=== PATIENT | female | born 1965 | race Two or more races ===

== ENCOUNTER 2019-02-09 07:58 | Outpatient (AMBR) | payer MEDICAID, SELFPAY ==
--- NOTE | 2019-02-09 08:12 | PT.OIERPT ---
PT OP Initial Eval Patient Information Visit Reasons: POST OP LEFT SHOULDER Medical Diagnosis: M75.122 Z47.89 Treatment Dx #1: L shoulder dec ROM Treatment Dx #2: s/p L capsular reconstruction, RC repair Start of Care: 02/09/19 Date of Onset: 01/10/19 Initial Assessment Subjective Pt is 54 yr old female kinyarwanda speaking s/p L capsular reconstruction, RC repair about 4 weeks ago. She is wearing abduction sling during the day and not at night. Pain level in the shoulder is 9/10 and she needs help with dressing, grooming and bathing ADL's. PMH: DM, high cholesterol Pt goal: to reach up with the shoulder without pain Objective L shoulder PROM: Flexion: 100 deg Abduction: 90 deg Erot: 35 deg AROM: NT Strength: NT Assessment Pt presentation consistent with referring Dx with ROM, strength and functional deficits of L shoulder with low tissue irritability. Pt has good rehab potential. Eval followed by HEP of PROM with materials. 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 Ind with HEP 2. Improved AROM of R shoulder to full 3. Pt will reach OH into tall cabinets with <=3/10 pain 4. Independent with ADL's with functional strength Treatment Plan 1. Manual therapy 2. Therex 3. Modalities as indicated, moist heat, ice, estim Frequency and Duration 2x a week for 8 weeks Certification Dates: 02/09/19 to 05/12/19 Office Procedures PT Procedures PT Date of Service: 02/09/19 OP PT Eval Mod Complex 30 minutes: Yes
== END 2019-02-10 23:59 | disposition home or self-care (01) ==
PROVIDERS: PCP Physician Assistant; Referring Provider Physician Assistant; Visit Provider Orthopaedic Surgery
DX: M75.122 Complete rotator cuff tear or rupture of left shoulder, not specified as traumatic (principal)
CPT/HCPCS: 97162

== ENCOUNTER 2019-03-12 08:00 | Outpatient (AMBR) | payer MEDICAID, SELFPAY ==
--- NOTE | 2019-02-13 15:52 | PT.ODAYNRPT ---
PT Outpatient Daily Note Date of Service: February 13, 2019 OP Daily Note Visit Reasons: post op left shoulder Outpatient Physical Therapy Treatment Date: 02/13/19 Subjective: Same as time of evaluation Objective: See F/S for therex Pulse 102 measured when she sat up at the end of Rx Assessment: Pt had good understanding of therex today to improve AAROM of L shoulder. After doing inclined supine therex she sat up and felt dizzy. After resting in sitting position for a couple minutes she was able to stand and walk out of the clinic. Plan: Continue per POC as tolerated Length of Time (minutes) of Treatment: 30 Minutes Office Procedures PT Procedures PT Date of Service: 02/13/19 Therapeutic Exercise 30 minutes: Yes
--- NOTE | 2019-02-15 10:01 | PTNOTE_ITS ---
PT Outpatient Daily Note Date of Service: February 15, 2019 OP Daily Note Visit Reasons: post op left shoulder Outpatient Physical Therapy Treatment Date: 02/15/19 Subjective: Feeling much better than last visit Objective: See F/S for therex Assessment: Slowly improving AAROM into FF, abduction and Erot with cues to rem ember HEP. Plan: Improve ROM Length of Time (minutes) of Treatment: 30 Minutes Office Procedures PT Procedures PT Date of Service: 02/13/19 Therapeutic Exercise 30 minutes: Yes PT Procedures PT Date of Service: 02/15/19 Therapeutic Exercise 30 minutes: Yes
--- NOTE | 2019-02-20 12:10 | PT.ODAYNRPT ---
PT Outpatient Daily Note Date of Service: February 20, 2019 OP Daily Note Visit Reasons: post op left shoulder Outpatient Physical Therapy Treatment Date: 02/20/19 Subjective: Improved shoulder ROM Objective: See F/S for therex MT: PPM into FF, abduction and Erot x10' to end-range to improve PROM Assessment: Slowly improving PROM and AAROM into FF, abduction and Erot. Plan: Improve ROM Length of Time (minutes) of Treatment: 30 Minutes Office Procedures PT Procedures PT Date of Service: 02/13/19 Therapeutic Exercise 30 minutes: Yes PT Procedures PT Date of Service: 02/15/19 Therapeutic Exercise 30 minutes: Yes PT Procedures PT Date of Service: 02/20/19 Therapeutic Exercise 15 minutes: Yes Manual Laboratory Animal Care Veterinarian 15 minutes: Yes
--- NOTE | 2019-02-22 12:05 | PTNOTE_ITS ---
PT Outpatient Daily Note Date of Service: February 22, 2019 OP Daily Note Visit Reasons: post op left shoulder Subjective: Improved shoulder ROM Objective: See F/S for therex MT: PPM into FF, abduction and Erot x10' to end-range to improve PROM Assessment: Slowly improving PROM and AAROM into FF, abduction and Erot. Plan: Improve ROM Office Procedures PT Procedures PT Date of Service: 02/22/19 Therapeutic Exercise 15 minutes: Yes Manual Warehouse Material Handler 15 minutes: Yes PT Procedures PT Date of Service: 02/13/19 Therapeutic Exercise 30 minutes: Yes PT Procedures PT Date of Service: 02/15/19 Therapeutic Exercise 30 minutes: Yes PT Procedures PT Date of Service: 02/20/19 Therapeutic Exercise 15 minutes: Yes Manual Warehouse Material Handler 15 minutes: Yes
--- NOTE | 2019-02-26 08:47 | PT.ODAYNRPT ---
PT Outpatient Daily Note Date of Service: February 26, 2019 OP Daily Note Visit Reasons: post op left shoulder Outpatient Physical Therapy Treatment Date: 02/26/19 Subjective: Improved shoulder ROM Objective: See F/S for therex MT: PPM into FF, abduction and Erot x10' to end-range to improve PROM PROM: Erot: 80 deg, FF: 145 deg, Abduction: 145 deg Assessment: Good improvement with PROM and AAROM into FF, abduction and Erot. Plan: Improve ROM, transition to ArOM Length of Time (minutes) of Treatment: 30 Minutes Office Procedures PT Procedures PT Date of Service: 02/22/19 Therapeutic Exercise 15 minutes: Yes Manual Medical Examiner 15 minutes: Yes PT Procedures PT Date of Service: 02/26/19 Therapeutic Exercise 15 minutes: Yes Manual Medical Examiner 15 minutes: Yes PT Procedures PT Date of Service: 02/13/19 Therapeutic Exercise 30 minutes: Yes PT Procedures PT Date of Service: 02/15/19 Therapeutic Exercise 30 minutes: Yes PT Procedures PT Date of Service: 02/20/19 Therapeutic Exercise 15 minutes: Yes Manual Medical Examiner 15 minutes: Yes
--- NOTE | 2019-02-28 13:41 | PT.ODAYNRPT ---
PT Outpatient Daily Note Date of Service: February 28, 2019 OP Daily Note Visit Reasons: post op left shoulder Outpatient Physical Therapy Treatment Date: 02/28/19 Subjective: Improved shoulder ROM Objective: See F/S for therex MT: PPM into FF, abduction and Erot x10' to end-range to improve PROM PROM: Erot: 80 deg, FF: 145 deg, Abduction: 145 deg Assessment: Good improvement with PROM and AAROM into FF, abduction and Erot. Plan: Improve ROM, transition to ArOM Length of Time (minutes) of Treatment: 30 Minutes Office Procedures PT Procedures PT Date of Service: 02/22/19 Therapeutic Exercise 15 minutes: Yes Manual Personnel Records Clerk 15 minutes: Yes PT Procedures PT Date of Service: 02/26/19 Therapeutic Exercise 15 minutes: Yes Manual Personnel Records Clerk 15 minutes: Yes PT Procedures PT Date of Service: 02/13/19 Therapeutic Exercise 30 minutes: Yes PT Procedures PT Date of Service: 02/15/19 Therapeutic Exercise 30 minutes: Yes PT Procedures PT Date of Service: 02/20/19 Therapeutic Exercise 15 minutes: Yes Manual Personnel Records Clerk 15 minutes: Yes PT Procedures PT Date of Service: 02/28/19 Therapeutic Exercise 15 minutes: Yes Manual Personnel Records Clerk 15 minutes: Yes
--- NOTE | 2019-03-05 10:21 | PTNOTE_ITS ---
PT Outpatient Daily Note Date of Service: March 05, 2019 OP Daily Note Visit Reasons: post op left shoulder Outpatient Physical Therapy Treatment Date: 03/05/19 Subjective: Improved shoulder ROM Objective: See F/S for therex MT: PPM into FF, abduction and Erot x5' to end-range to improve PROM Assessment: Good improvement with AROM into FF, abduction and Erot, limited into Erot at about 45 deg. Plan: Improve ROM, continue transitioning to ArOM Length of Time (minutes) of Treatment: 30 Minutes Office Procedures PT Procedures PT Date of Service: 02/22/19 Therapeutic Exercise 15 minutes: Yes Manual Epic Willow Specialist 15 minutes: Yes PT Procedures PT Date of Service: 02/26/19 Therapeutic Exercise 15 minutes: Yes Manual Epic Willow Specialist 15 minutes: Yes PT Procedures PT Date of Service: 03/05/19 Therapeutic Exercise 30 minutes: Yes PT Procedures PT Date of Service: 02/13/19 Therapeutic Exercise 30 minutes: Yes PT Procedures PT Date of Service: 02/15/19 Therapeutic Exercise 30 minutes: Yes PT Procedures PT Date of Service: 02/20/19 Therapeutic Exercise 15 minutes: Yes Manual Epic Willow Specialist 15 minutes: Yes PT Procedures PT Date of Service: 02/28/19 Therapeutic Exercise 15 minutes: Yes Manual Epic Willow Specialist 15 minutes: Yes
--- NOTE | 2019-03-07 10:08 | PTNOTE_ITS ---
PT Outpatient Daily Note Date of Service: March 07, 2019 OP Daily Note Visit Reasons: post op left shoulder Outpatient Physical Therapy Treatment Date: 03/07/19 Subjective: Improved shoulder ROM Objective: See F/S for therex Assessment: Good improvement with AROM into FF, abduction and Erot. Plan: Improve ROM, continue transitioning to ArOM Length of Time (minutes) of Treatment: 30 Minutes Office Procedures PT Procedures PT Date of Service: 02/22/19 Therapeutic Exercise 15 minutes: Yes Manual Supervisor Machining 15 minutes: Yes PT Procedures PT Date of Service: 02/26/19 Therapeutic Exercise 15 minutes: Yes Manual Supervisor Machining 15 minutes: Yes PT Procedures PT Date of Service: 03/05/19 Therapeutic Exercise 30 minutes: Yes PT Procedures PT Date of Service: 02/13/19 Therapeutic Exercise 30 minutes: Yes PT Procedures PT Date of Service: 02/15/19 Therapeutic Exercise 30 minutes: Yes PT Procedures PT Date of Service: 02/20/19 Therapeutic Exercise 15 minutes: Yes Manual Supervisor Machining 15 minutes: Yes PT Procedures PT Date of Service: 02/28/19 Therapeutic Exercise 15 minutes: Yes Manual Supervisor Machining 15 minutes: Yes PT Procedures PT Date of Service: 03/07/19 Therapeutic Exercise 30 minutes: Yes
--- NOTE | 2019-03-12 09:48 | PT.ODAYNRPT ---
PT Outpatient Daily Note Date of Service: March 12, 2019 OP Daily Note Visit Reasons: post op left shoulder Outpatient Physical Therapy Treatment Date: 03/12/19 Subjective: My shoulder hurts more today, could it be from the cold weather? Objective: See F/S for therex Assessment: Good improvement so far with AROM into FF, abduction and Erot but slight increased pain today limited AROM tolerance compared to last visit. Plan: Improve ROM, continue transitioning to ArOM Length of Time (minutes) of Treatment: 30 Minutes Office Procedures PT Procedures PT Date of Service: 02/22/19 Therapeutic Exercise 15 minutes: Yes Manual Extrusion Die Corrector 15 minutes: Yes PT Procedures PT Date of Service: 02/26/19 Therapeutic Exercise 15 minutes: Yes Manual Extrusion Die Corrector 15 minutes: Yes PT Procedures PT Date of Service: 03/05/19 Therapeutic Exercise 30 minutes: Yes PT Procedures PT Date of Service: 03/12/19 Therapeutic Exercise 30 minutes: Yes PT Procedures PT Date of Service: 02/13/19 Therapeutic Exercise 30 minutes: Yes PT Procedures PT Date of Service: 02/15/19 Therapeutic Exercise 30 minutes: Yes PT Procedures PT Date of Service: 02/20/19 Therapeutic Exercise 15 minutes: Yes Manual Extrusion Die Corrector 15 minutes: Yes PT Procedures PT Date of Service: 02/28/19 Therapeutic Exercise 15 minutes: Yes Manual Extrusion Die Corrector 15 minutes: Yes PT Procedures PT Date of Service: 03/07/19 Therapeutic Exercise 30 minutes: Yes
== END 2019-03-12 23:59 | disposition home or self-care (01) ==
PROVIDERS: PCP Physician Assistant; Referring Provider Physician Assistant; Visit Provider Orthopaedic Surgery
DX: M75.122 Complete rotator cuff tear or rupture of left shoulder, not specified as traumatic (principal)
CPT/HCPCS: 97110; 97140

== ENCOUNTER 2019-04-09 08:00 | Outpatient (AMBR) | payer MEDICAID, SELFPAY ==
--- NOTE | 2019-03-14 15:01 | PT.ODAYNRPT ---
PT Outpatient Daily Note Date of Service: March 14, 2019 OP Daily Note Visit Reasons: post op left shoulder Outpatient Physical Therapy Treatment Date: 03/14/19 Subjective: Moving the arm and reaching better but with mild/mod pain Objective: See F/S for therex Assessment: Good improvement with AROM in all planes. Full PROM into FF and Erot. Plan: Continue per POC Length of Time (minutes) of Treatment: 30 Minutes Office Procedures PT Procedures PT Date of Service: 03/14/19 Therapeutic Exercise 30 minutes: Yes
--- NOTE | 2019-03-19 08:36 | PT.ODAYNRPT ---
PT Outpatient Daily Note Date of Service: March 19, 2019 OP Daily Note Visit Reasons: post op left shoulder Outpatient Physical Therapy Treatment Date: 03/19/19 Subjective: I can move my arm better but I don't have much strength. Objective: See F/S for therex Assessment: Good improvement with AROM in all planes. Full PROM into FF and Erot and good progress with goals thus far. Plan: Continue per POC Length of Time (minutes) of Treatment: 30 Minutes Office Procedures PT Procedures PT Date of Service: 03/14/19 Therapeutic Exercise 30 minutes: Yes PT Procedures PT Date of Service: 03/19/19 Therapeutic Exercise 30 minutes: Yes
--- NOTE | 2019-03-21 10:19 | PT.ODAYNRPT ---
PT Outpatient Daily Note Date of Service: March 21, 2019 OP Daily Note Visit Reasons: post op left shoulder Outpatient Physical Therapy Treatment Date: 03/21/19 Subjective: I can move my arm better and it's not hurting much Objective: See F/S for therex Assessment: Good improvement with AROM in all planes. Full PROM into FF and Erot and good progress with goals thus far. Plan: Continue per POC Length of Time (minutes) of Treatment: 30 Minutes Office Procedures PT Procedures PT Date of Service: 03/14/19 Therapeutic Exercise 30 minutes: Yes PT Procedures PT Date of Service: 03/19/19 Therapeutic Exercise 30 minutes: Yes PT Procedures PT Date of Service: 03/21/19 Therapeutic Exercise 30 minutes: Yes
--- NOTE | 2019-03-26 19:33 | PT.ODAYNRPT ---
PT Outpatient Daily Note Date of Service: March 26, 2019 OP Daily Note Visit Reasons: post op left shoulder Outpatient Physical Therapy Treatment Date: 03/26/19 Subjective: I can move my arm better and it's not hurting much Objective: See F/S for therex Assessment: Good improvement with AROM in all planes. Full PROM into FF and Erot and good progress with goals thus far. Transitioning to light strengthening with therabands with low tissue irritability. Plan: Continue per POC Length of Time (minutes) of Treatment: 30 Minutes Office Procedures PT Procedures PT Date of Service: 03/14/19 Therapeutic Exercise 30 minutes: Yes PT Procedures PT Date of Service: 03/19/19 Therapeutic Exercise 30 minutes: Yes PT Procedures PT Date of Service: 03/21/19 Therapeutic Exercise 30 minutes: Yes PT Procedures PT Date of Service: 03/26/19 Therapeutic Exercise 30 minutes: Yes
--- NOTE | 2019-04-02 08:52 | PT.ODAYNRPT ---
PT Outpatient Daily Note Date of Service: April 02, 2019 OP Daily Note Visit Reasons: post op left shoulder Outpatient Physical Therapy Treatment Date: 04/02/19 Subjective: I can move my arm better and it's not hurting much Objective: See F/S for therex Assessment: Good improvement with AROM in all planes. Full PROM into FF and Erot and good progress with goals thus far. Transitioning to light strengthening with therabands with some difficulty into Erot. She tends to use compensatory trunk lean with Erot and abduction. Plan: Continue per POC Length of Time (minutes) of Treatment: 30 Minutes Office Procedures PT Procedures PT Date of Service: 03/14/19 Therapeutic Exercise 30 minutes: Yes PT Procedures PT Date of Service: 03/19/19 Therapeutic Exercise 30 minutes: Yes PT Procedures PT Date of Service: 03/21/19 Therapeutic Exercise 30 minutes: Yes PT Procedures PT Date of Service: 03/26/19 Therapeutic Exercise 30 minutes: Yes PT Procedures PT Date of Service: 04/02/19 Therapeutic Exercise 30 minutes: Yes
--- NOTE | 2019-04-04 08:36 | PT.ODAYNRPT ---
PT Outpatient Daily Note Date of Service: April 04, 2019 OP Daily Note Visit Reasons: post op left shoulder Outpatient Physical Therapy Treatment Date: 04/04/19 Subjective: I can move my arm better and it's not hurting much Objective: See F/S for therex Assessment: Good improvement with AROM in all planes. Full PROM into FF and Erot and good progress with goals thus far. Transitioning to light strengthening with therabands with some difficulty into Erot. She tends to use compensatory trunk lean with Erot and abduction. Plan: Reassess Length of Time (minutes) of Treatment: 30 Minutes Office Procedures PT Procedures PT Date of Service: 03/14/19 Therapeutic Exercise 30 minutes: Yes PT Procedures PT Date of Service: 03/19/19 Therapeutic Exercise 30 minutes: Yes PT Procedures PT Date of Service: 03/21/19 Therapeutic Exercise 30 minutes: Yes PT Procedures PT Date of Service: 03/26/19 Therapeutic Exercise 30 minutes: Yes PT Procedures PT Date of Service: 04/02/19 Therapeutic Exercise 30 minutes: Yes PT Procedures PT Date of Service: 04/04/19 Therapeutic Exercise 30 minutes: Yes
--- NOTE | 2019-04-09 11:45 | PT.ODS1RPT ---
PT OP Progress/Discharge Note Date of Service: April 09, 2019 Progress Note/DC Note Progress Note/Discharge Note: DC Note Patient Information Visit Reasons: post op left shoulder Service Continue Service or Discharge: Discharge Discharge Date: 04/09/19 Status Subjective: Pt reports much better ROM and that the shoulder is doing well. Prepared to D/C from therapy. Objective: L shoulder AROM: Strength MMT: FF: 152 deg 4/5 Abd: 143 deg 4-/5 Erot: 71 deg 3/5 Assessment: Pt has attended / Rx visits with very good progress with therapy goals. She has met the goal of being independent with HEP and reaching OH into tall cabinets with <=3/10 pain. She is not having pain into FF but Erot she has discomfort. Pt is independent with ADL's with functional strength. Pt was given updated HEP of light resistance therex with theraband to continue at home. Plan: D/C with HEP. Office Procedures PT Procedures PT Date of Service: 03/14/19 Therapeutic Exercise 30 minutes: Yes PT Procedures PT Date of Service: 03/19/19 Therapeutic Exercise 30 minutes: Yes PT Procedures PT Date of Service: 03/21/19 Therapeutic Exercise 30 minutes: Yes PT Procedures PT Date of Service: 03/26/19 Therapeutic Exercise 30 minutes: Yes PT Procedures PT Date of Service: 04/02/19 Therapeutic Exercise 30 minutes: Yes PT Procedures PT Date of Service: 04/04/19 Therapeutic Exercise 30 minutes: Yes PT Procedures PT Date of Service: 04/09/19 Therapeutic Exercise 30 minutes: Yes
== END 2019-04-12 23:59 | disposition home or self-care (01) ==
PROVIDERS: PCP Physician Assistant; Referring Provider Physician Assistant; Visit Provider Orthopaedic Surgery
DX: Z47.89 Encounter for other orthopedic aftercare (principal); M75.122 Complete rotator cuff tear or rupture of left shoulder, not specified as traumatic
CPT/HCPCS: 97110

== ENCOUNTER 2021-06-04 09:54 | Outpatient (AMBR) | payer MEDICAID, SELFPAY ==
--- NOTE | 2021-05-25 14:34 | PT.OIERPT ---
PT OP Initial Eval Patient Information Visit Reasons: right knee pain Medical Diagnosis: M25.561 Treatment Dx #1: Right Knee Pain Treatment Dx #2: Right Knee Mobility Deficits Start of Care: 05/25/21 Date of Onset: 1 year ago Initial Assessment Subjective Pt is a 56 y/o female s/p right knee arthroscopic surgery by Dr Marks ~ 1 year ago due to medial meniscus tear. Pt still has a lot of knee pain (6/10). Pt has limitation with work duties, chores, sitting, standing, walking, self care, recreational activities, and performing ADLs. Pt did not receive any formal physical therapy after the knee surgery. Objective Right Knee AROM: 0 deg to 95 deg with pain Right Knee MMTs Quads: 3+/5 Hs: 3-/5 Right Hip MMTs Glute Med: 3/5 Glute Max: 3/5 SLS: NT Special Test (+) ant knee compression test Assessment Pt demonstrate right knee pain with mobility deficits s/p knee surgery leading to decline function. 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 1) Increase right knee AROM WNL in 6 wks to be able to perform squatting activities 2) Increase right knee MMTs grossly to 4/5 in 6 wks to be able to perform work duties 3) Increase SLS to 10 sec in 6 wks to be able to perform self care activities 4) Increase right hip MMTs grossly to 3+/5 in 6 wks to be able to perform recreational activities 5) Indep with HEP Treatment Plan 1) Manual Therapy 2) Therapeutic Activities 3) Therapeutic Exercises 4) Modalities (ice, heat) 5) Balance Training Frequency and Duration 2 x wk for 6 wks Certification Dates: 05/25/21 to 08/23/21 Office Procedures PT Treatments PT Date of Service: 05/25/21 OP PT Eval Mod Complex 30 minutes: Yes
--- NOTE | 2021-05-28 11:37 | PT.ODAYNRPT ---
PT Outpatient Daily Note Date of Service: 05/28/21 OP Daily Note Visit Reasons: right knee pain Outpatient Physical Therapy Treatment Date: 05/28/21 Subjective: Pt's knee hurts the same and continues to have limitation with bending. Objective: Please see flow chart for list of ther ex performed Assessment: tolerate exercises with minimal pain; post heat decrease pain Plan: Continue with PT Length of Time (minutes) of Treatment: 30 Minutes Office Procedures PT Treatments PT Date of Service: 05/25/21 OP PT Eval Mod Complex 30 minutes: Yes PT Treatments PT Date of Service: 05/28/21 Therapeutic Exercise 30 minutes: Yes
--- NOTE | 2021-06-01 13:35 | PT.ODAYNRPT ---
PT Outpatient Daily Note Date of Service: 06/01/2021 OP Daily Note Visit Reasons: right knee pain Outpatient Physical Therapy Treatment Date: 06/01/21 Subjective: pt came in with knee pain. Objective: see flow sheet. Assessment: pt was having knee pain during treatment. she completed the exercises at her pace. advised her to stop if the pain increases. STM to her qauds in which noted muscle tension. she did not c/o pain but she was aware of the muscle tension. advised her to massage at home as well. ice pack post ther ex. Plan: continue POC per PT. Length of Time (minutes) of Treatment: 30 Minutes Office Procedures PT Treatments PT Date of Service: 06/01/21 Therapeutic Exercise 30 minutes: Yes PT Treatments PT Date of Service: 05/25/21 OP PT Eval Mod Complex 30 minutes: Yes PT Treatments PT Date of Service: 05/28/21 Therapeutic Exercise 30 minutes: Yes
--- NOTE | 2021-06-04 11:47 | PT.ODAYNRPT ---
PT Outpatient Daily Note Date of Service: 06/04/2021 OP Daily Note Visit Reasons: right knee pain Outpatient Physical Therapy Treatment Date: 06/04/21 Subjective: pt states her knee has slight pain upon visit. Objective: see flow sheet. Assessment: pt did c/o pain and pointed to the midline of the knee joint towards the lateral aspect of the knee. added new exercises in which she has good knee flexion ROM. she does fatigue due to knee discomfort. she did ambulate with antalgic gait pattern. ice pack post ther ex. Plan: continue POC per PT. Length of Time (minutes) of Treatment: 30 Minutes Office Procedures PT Treatments PT Date of Service: 06/01/21 Therapeutic Exercise 30 minutes: Yes PT Treatments PT Date of Service: 05/25/21 OP PT Eval Mod Complex 30 minutes: Yes PT Treatments PT Date of Service: 05/28/21 Therapeutic Exercise 30 minutes: Yes PT Treatments PT Date of Service: 06/04/21 Therapeutic Exercise 30 minutes: Yes
--- NOTE | 2021-06-09 14:04 | PT.ODS1RPT ---
PT OP Progress/Discharge Note Date of Service: 06/09/21 Progress Note/DC Note Progress Note/Discharge Note: DC Note Patient Information Visit Reasons: right knee pain Service Discharge Date: 06/09/21 Status Assessment: Pt has been seen for 4 visits (eval + 3 visits). Pt was last treated on 06/04/21. Pt no showed 06/09/21 appt and was contact regarding follow up appts. Pt stated that she will like to be d/c and will follow up with provider. Pt d/c per Pt's request, thank you for your referrals Office Procedures PT Treatments PT Date of Service: 06/01/21 Therapeutic Exercise 30 minutes: Yes PT Treatments PT Date of Service: 05/25/21 OP PT Eval Mod Complex 30 minutes: Yes PT Treatments PT Date of Service: 05/28/21 Therapeutic Exercise 30 minutes: Yes PT Treatments PT Date of Service: 06/04/21 Therapeutic Exercise 30 minutes: Yes
== END 2021-06-12 23:59 | disposition home or self-care (01) ==
PROVIDERS: PCP Physician Assistant; Referring Provider Physician Assistant; Visit Provider Physician Assistant
DX: M25.561 Pain in right knee (principal); R26.2 Difficulty in walking, not elsewhere classified
CPT/HCPCS: 97110; 97162

== ENCOUNTER → 2024-05-03 | Outpatient (CLI) | payer MEDICAID, SELFPAY ==
--- NOTE | 2024-05-03 13:14 | XR_ITS ---
Examination: Knee bilateral, 6 views Technique: Knee AP, lateral, oblique each knee total 6 views Date and time of exam: May 03, 2024 1414 hours INDICATIONS: Patient fell 2 weeks ago with injury to both knees, bilateral knee pain. FINDINGS: Bilateral moderate to advanced tricompartment osteoarthritis, most severe medial joint spaces No acute fracture or dislocation involving either knee Meniscus calcification IMPRESSION: No acute fracture dislocation involving either knee
--- NOTE | 2024-05-03 13:14 | XR_ITS ---
Examination: Shoulder,right, 3 views Technique: Shoulder AP internal rotation, AP external rotation, Y view shoulder, 3 views Exam date and time :May 03, 2024 at 1418 hours INDICATIONS: Patient fell 2 weeks ago with injury to the right shoulder, right shoulder pain. FINDINGS: No shoulder fracture or dislocation Advanced osteoarthritis glenohumeral joint No calcific tendinitis IMPRESSION: Advanced osteoarthritis glenohumeral joint
== END | disposition home or self-care (01) ==
LOC: CDIM 13:02
PROVIDERS: PCP Physician Assistant; Referring Provider Physician Assistant; Visit Provider Physician Assistant
DX: M19.011 Primary osteoarthritis, right shoulder (principal); S49.91XA Unspecified injury of right shoulder and upper arm, initial encounter; S89.92XA Unspecified injury of left lower leg, initial encounter; S89.91XA Unspecified injury of right lower leg, initial encounter; W19.XXXA Unspecified fall, initial encounter
CPT/HCPCS: 73030; 73562

== ENCOUNTER → 2024-12-18 | Outpatient (CLI) | payer OTHER, SELFPAY ==
--- NOTE | 2024-12-18 | XR_ITS ---
Examination: Knee, right , 3 views Technique: Knee AP, lateral, oblique 3 views Date and time of exam: December 18, 2024 1207 hours INDICATIONS: Patient fell 6 days ago with injury to the knee, knee pain. FINDINGS: Significant osteoarthritis medial joint space. Moderate osteopenia. Moderate knee effusion. No acute fracture IMPRESSION: No acute fracture
--- NOTE | 2024-12-18 | XR_ITS ---
EXAMINATION: Ankle, right 3 views . Technique: Ankle AP, oblique, lateral 3 views Date and time of exam: December 18, 2024 1207 hours INDICATIONS: Patient fell 6 days ago with injury to the ankle, ankle pain. FINDINGS: Moderate osteopenia. Soft tissue vascular calcification. No fracture or dislocation. IMPRESSION: No fracture or dislocation.
[2024-12-18 12:54] LABS: Basophils # (Auto) 0.0 Thou/mm3 (0.0-0.2); Basophils % (Auto) 1 % (0-2.5); Eosinophils # (Auto) 0.1 Thou/mm3 (0.0-0.5); Eosinophils % (Auto) 1 % (0-10); Hematocrit 40.2 % (36.0-46.0); Hemoglobin 12.8 g/dL (12.0-16.0); Immature Granulocytes Auto 0.03 Thou/mm3 (0.00-0.00); Lymphocytes # (Auto) 1.2 Thou/mm3 (1.0-4.8); Lymphocytes % (Auto) 24 % (10-50); Mean Corpuscular HGB Conc 31.8 g/dl (31.0-37.0); Mean Corpuscular Hemoglobin 28.4 pg (25.0-35.0); Mean Corpuscular Volume 89 fL (80-100); Monocytes # (Auto) 0.5 Thou/mm3 (0.0-0.8); Monocytes % (Auto) 9 % (0-12); Neutrophils # (Auto) 3.3 Thou/mm3 (1.8-7.7); Neutrophils % (Auto) 64 % (37-80); Nucleated Red Blood Cell # 0.00 Thou/mm3 (0.00-0.00); Nucleated Red Blood Cell % 0 /100 WBC (0); Platelet Count 223 Thou/mm3 (140-440); RDW Standard Deviation 47.8 fL (36.4-46.3); Red Blood Count 4.51 Miln/mm3 (4.00-5.20); White Blood Count 5.2 Thou/mm3 (3.6-11.0)
[2024-12-18 13:09] LABS: Alanine Aminotransferase 24 U/L (10-49); Albumin, Serum 4.3 gm/dL (3.5-5.0); Albumin/Globulin Ratio 2.0 (1.2-2.2); Alkaline Phosphatase 71 U/L (46-116); Anion Gap 10 (7-16); Aspartate Amino Transferase 17 U/L (0-34); BUN/Creatinine Ratio 21 Ratio (12-20); Bilirubin,Total 0.5 mg/dL (0.3-1.2); Blood Urea Nitrogen 15 mg/dL (9-23); Calcium 9.2 mg/dL (8.3-10.6); Calcium (Corrected) 9.2 mg/dL (8.5-10.1); Carbon Dioxide 29.5 mMol/L (20.0-31.0); Chloride 105 mMol/L (98-107); Creatinine (Component) 0.7 mg/dL (0.6-1.3); Globulin 2.2 gm/dL (2.3-3.5); Glucose 80 mg/dL (74-106); Osmolality,Calculated 286 (275-295); Potassium 4.3 mMol/L (3.4-5.1); Sodium 144 mMol/L (136-145); Total Protein 6.5 gm/dL (5.7-8.2); eGFR > 60 See Note
== END | disposition home or self-care (01) ==
LOC: CDIM 11:56 → COPL 12:24
PROVIDERS: PCP Physician Assistant; Referring Provider Physician Assistant; Visit Provider Radiology Diagnostic Radiology
DX: S99.911A Unspecified injury of right ankle, initial encounter (principal); M25.561 Pain in right knee; W19.XXXA Unspecified fall, initial encounter; R53.83 Other fatigue
CPT/HCPCS: 36415; 73562; 73610; 80053; 85025

== ENCOUNTER → 2025-02-01 | Outpatient (CLI) | payer OTHER, SELFPAY ==
--- NOTE | 2025-02-01 | XR_ITS ---
Examination: Knee, right , 3 views Technique: Knee AP, lateral, oblique 3 views Date and time of exam: February 01, 2025 0833 hours INDICATIONS: Right knee pain beginning one month ago. FINDINGS: Moderate to advanced tricompartment osteoarthritis, most severe medial joint space Moderate osteopenia No fracture or dislocation Large right knee effusion IMPRESSION: Moderate to advanced tricompartment osteoarthritis
== END | disposition home or self-care (01) ==
LOC: CDIM 07:59
PROVIDERS: PCP Physician Assistant; Referring Provider Physician Assistant; Visit Provider Physician Assistant
DX: M17.11 Unilateral primary osteoarthritis, right knee (principal)
CPT/HCPCS: 73562